=== PATIENT | female | born 1980 | race American Indian/Alaskan Native ===

== ENCOUNTER 2017-01-02 11:19 | Emergency (ER) | payer OTHER ==
[2017-01-02 12:09] LABS: Basophils % (Auto) 0.8 % (0.0-1.8); Eosinophils % (Auto) 1.8 % (0.0-4.3); Hematocrit 34.2 % (30.3-42.9); Hemoglobin 11.2 gm/dl (10.1-14.3); Mean Corpuscular HGB Conc 33 % (30-34); Mean Corpuscular Hemoglobin 29 pg (28-32); Mean Corpuscular Volume 87 fl (79-97); Platelet Count 320 K/mm3 (140-440); Red Blood Count 3.91 M/mm3 (3.65-5.03); Red Cell Distribution Width 14.6 % (13.2-15.2); White Blood Count 6.9 K/mm3 (4.5-11.0)
[2017-01-02 12:11] LABS: Alanine Aminotransferase 15 units/L (7-56); Albumin 4.7 g/dL (3.9-5); Albumin/Globulin Ratio 1.3 %; Alkaline Phosphatase 86 units/L (35-129); Anion Gap 19 mmol/L; BUN/Creatinine Ratio 17.14; Blood Urea Nitrogen 12 mg/dL (7-17); Calcium 9.7 mg/dL (8.4-10.2); Carbon Dioxide 25 mmol/L (22-30); Chloride 101.2 mmol/L (98-107); Glucose 88 mg/dL (65-100); Lipase 25 units/L (13-60); Potassium 4.2 mmol/L (3.6-5.0); Sodium 141 mmol/L (137-145); Total Protein 8.4 g/dL (6.3-8.2)
[2017-01-02 12:41] LABS: Bacteria,Urine 1+ /HPF (Negative); Bilirubin,Urine NEG (Negative); Blood,Urine NEG (Negative); Ketones,Urine TR mg/dL (Negative); Leukocyte Esterase,Urine SM (Negative); Mucus,Urine 3+ /HPF; Nitrite,Urine NEG (Negative); Protein,Urine <15 mg/dL mg/dL (Negative); Urobilinogen,Urine < 2.0 mg/dL (<2.0)
[2017-01-02] MEDS ORDERED: BENTYL IM ONE (22:22)
[2017-01-02] MEDS ORDERED: PEPCID PO ONE (22:22)
--- NOTE | 2017-01-02 22:44 | Emergency Department Report ---
ED Abdominal Pain HPI - General Chief Complaint: Abdominal Pain Stated Complaint: CELESTE/ABD PAIN Time Seen by Provider: 01/02/17 21:04 Source: patient Mode of arrival: Ambulatory Limitations: No Limitations - History of Present Illness Initial Comments: 36 yo female with no PMHX presenting to ED complaining of abdominal pain. pain onset was 2 years prior, initially pain was located in Left upper quadrant however recently pain has traveled toright upper quadrant. Patient denies inciting factor. Patient states pain is crampy in nature and is waxing and waning throughout the weeks. Patient denies relaxing or worsening factors. Patient denies nausea/vomiting/diarrhea. Patient admits she was supposed to have workup for this pain however she has lost the primary care follow-up. Patient denies history of gallstones. Pt denies: fever/chills, chest pain, vaginal discharge. Pt states she is not sexually active MD Complaint: abdominal pain -: year(s) (2) Location: RUQ Radiation: epigastric Migration to: epigastric Severity scale (0 -10): 5 Quality: cramping Consistency: intermittent Worsens With: nothing Associated Symptoms: denies: nausea, vomiting, diarrhea, constipation, dysuria, hematemesis, melena, hematuria, anorexia - Related Data Previous Rx's Medication Instructions Recorded Last Taken Type Dicyclomine [Bentyl] 20 mg PO QID #30 bottle 01/03/17 Unknown Rx Famotidine [Pepcid] 20 mg PO BID #30 tablet 01/03/17 Unknown Rx Nitrofurantoin [place]/M-Cryst 100 mg PO Q12HR #20 capsule 01/03/17 Unknown Rx [Macrobid CAP] Allergies Allergy/AdvReac Type Severity Reaction Status Date / Time shellfish derived AdvReac Angioedema Verified 01/02/17 11:26 ED Review of Systems ROS: Stated complaint: CELESTE/ABD PAIN Other details as noted in HPI Constitutional: denies: chills, fever Eyes: denies: eye pain, eye discharge, vision change ENT: denies: ear pain, throat pain Respiratory: denies: cough, shortness of breath, wheezing Cardiovascular: denies: chest pain, palpitations Endocrine: no symptoms reported Gastrointestinal: abdominal pain. denies: nausea, vomiting, diarrhea, constipation, hematemesis Genitourinary: denies: urgency, dysuria, discharge Musculoskeletal: denies: back pain, joint swelling, arthralgia Skin: denies: rash, lesions Neurological: denies: headache, weakness, paresthesias Psychiatric: denies: anxiety, depression Hematological/Lymphatic: denies: easy bleeding, easy bruising ED Past Medical Hx - Past Medical History Previous Medical History?: No Additional medical history: Ovarian Failure - Surgical History Past Surgical History?: No - Social History Smoking Status: Never Smoker Substance Use Type: None - Medications Home Medications: Home Medications Medication Instructions Recorded Confirmed Last Taken Type Dicyclomine [Bentyl] 20 mg PO QID #30 bottle 01/03/17 Unknown Rx Famotidine [Pepcid] 20 mg PO BID #30 tablet 01/03/17 Unknown Rx Nitrofurantoin [place]/M-Cryst 100 mg PO Q12HR #20 capsule 01/03/17 Unknown Rx [Macrobid CAP] ED Physical Exam - General Limitations: No Limitations General appearance: alert, in no apparent distress - Head Head exam: Present: atraumatic, normocephalic - Eye Eye exam: Present: normal appearance - ENT ENT exam: Present: mucous membranes moist - Neck Neck exam: Present: normal inspection - Respiratory Respiratory exam: Present: normal lung sounds bilaterally. Absent: respiratory distress - Cardiovascular Cardiovascular Exam: Present: regular rate, normal rhythm. Absent: systolic murmur, diastolic murmur, rubs, gallop - GI/Abdominal GI/Abdominal exam: Present: soft, normal bowel sounds. Absent: distended, tenderness, guarding, rebound - Extremities Exam Extremities exam: Present: normal inspection - Back Exam Back exam: Present: normal inspection - Neurological Exam Neurological exam: Present: alert, oriented X3 - Psychiatric Psychiatric exam: Present: normal affect, normal mood - Skin Skin exam: Present: warm, dry, intact, normal color. Absent: rash ED Course Vital Signs 01/02/17 01/02/17 01/02/17 11:26 15:46 21:00 Temperature 98.1 F 98.4 F Pulse Rate 87 81 74 Respiratory 16 16 Rate Blood Pressure 123/83 Blood Pressure 129/89 139/75 [Right] O2 Sat by Pulse 100 100 100 Oximetry 01/03/17 00:00 Temperature Pulse Rate 73 Respiratory 18 Rate Blood Pressure Blood Pressure 133/69 [Right] O2 Sat by Pulse 99 Oximetry - Reevaluation(s) Reevaluation #1: 01/03/17 00:25 Patient agrees she stable discharge home. ED Medical Decision Making - Lab Data Result diagrams: 01/02/17 11:35 01/02/17 11:35 - Medical Decision Making 36 yo female with no past medical history is presenting to emergency department complaining of chronic abdominal pain. Ultrasound negative for acute findings. Ultrasound results consistent with hepatic the steatosis. Patient informed of this, and a copy of the results, and agrees she is stable discharge home follow-up with GI, PCP. Repeat abdominal exam soft nontender nondistended and nontender.. I've low suspicion for: cholecystitis, ectopic , small bowel obstruction, appendicitis. Critical Care Time: No Critical care attestation.: If time is entered above; I have spent that time in minutes in the direct care of this critically ill patient, excluding procedure time. ED Disposition Clinical Impression: Abdominal pain, UTI (urinary tract infection) Disposition: DC-01 TO HOME OR SELFCARE Is pt being admited?: No Does the pt Need Aspirin: No Condition: Stable Instructions: Abdominal Pain (ED) Prescriptions: Dicyclomine [Bentyl] 20 mg PO QID #30 bottle Famotidine [Pepcid] 20 mg PO BID #30 tablet Nitrofurantoin [place]/M-Cryst [Macrobid CAP] 100 mg PO Q12HR #20 capsule Referrals: PRIMARY CAREMD [Primary Care Provider] - 3-5 Days NATE BAKER MD [Staff Physician] - 3-5 Days ROSA MEADOWS MD, PHD [Staff Physician] - 3-5 Days Forms: Work/School Release Form(ED)
--- NOTE | 2017-01-02 22:45 | Ultrasound Report ---
FINAL REPORT EXAM: US ABDOMEN LIMITED HISTORY: RUQ pain COMPARISONS: None FINDINGS: Grayscale and color Doppler ultrasound evaluation of the right upper abdomen Liver is normal in size and contour. Hepatic parenchymal echogenicity is mildly increased. No parenchymal lesion identified. No intra or extrahepatic biliary ductal dilatation. The common duct measures approximately 2 millimeters in caliber. The gallbladder is sonographically unremarkable. No cholelithiasis. Gallbladder wall measures approximately 1-2 millimeters. The pancreas is not well seen secondary to overlying bowel gas. Imaged portion of the aorta is normal in caliber and sonographically unremarkable. No abdominal ascites or free fluid in Morison's pouch. The right kidney measures up to 9.5 cm in length and is without hydronephrosis or echogenic shadowing foci to suggest nephrolithiasis. IMPRESSION: Mild hepatic steatosis is suggested. Otherwise unremarkable right upper quadrant ultrasound.
[2017-01-03 00:56] VITALS: BP 133/69
== END 2017-01-03 00:50 | disposition home or self-care (01) ==
LOC: ED 11:19
DX: N39.0 Urinary tract infection, site not specified (principal)
CPT/HCPCS: 36415; 76705; 80053; 81001; 83690; 84703; 85025; 99284; J0500